=== PATIENT | female | born 1960 | race African-American/Black ===

== ENCOUNTER 2019-05-12 15:44 | Inpatient (IN) | payer OTHER ==
[2019-05-12 19:17] VITALS: BMI 23.8
--- NOTE | 2019-05-12 20:51 | HP ---
CIWA Score - Admission Criteria [facility] Guidelines: Admission for Medically Managed Detox: Requires at least one of the followin. CIWA greater than 12 2. Seizures within the past 24 hours 3. Delirium tremens within the past 24 hours 4. Hallucinations within the past 24 hours 5. Acute intervention needed for co occurring medical disorder 6. Acute intervention needed for co occurring psychiatric disorder 7. Severe withdrawal that cannot be handled at a lower level of care (continued vomiting, continued diarrhea, abnormal vital signs) requiring intravenous medication and/or fluids 8. Admission ROS S - HPI Chief Complaint: seeking inpatient rehab after detox Allergies/Adverse Reactions: Allergies Allergy/AdvReac Type Severity Reaction Status Date / Time Penicillins Allergy Severe Verified 05/12/19 19:03 lactose AdvReac Severe Verified 05/12/19 19:03 History of Present Illness: 58 Y.O FEMALE WITH ALCOHOLISM AND COCAINE DEPENDENCE HERE FOR REHAB. CLIENT IS REFERRED BY [facility] AFTER COMPLETING DETOX. CLIENT WAS ADMITTED ON 05/09/19 AND DC WITH COMPLETION ON 05/12/2019. VERIFIED WITH DC PAPERS. UTOX NEG X2. REPEATED BY LOCAL AREA NETWORK ADMINISTRATOR. THIS IS CLIENT FIRST ADMISSION HERE. REPORTS LONGEST CLEAN TIME 20 MONTHS IN [facility]. RELAPSING 7 MONTHS AGO. DENIES HX/O SEIZURES, DELIRIUM TREMENS. DOMICILED, SSI, DENIES LEGALS. PMHX- OA, HTN, PSYCH- DENIES Exam Limitations: No Limitations - Ebola screening Have you traveled outside of the country in the last 21 days: No Have you had contact with anyone from an Ebola affected area: No Do you have a fever: No - Review of Systems Constitutional: Malaise (R/T OA) EENT: reports: Blurred Vision (LEFT EYE GLUACOMA) Respiratory: reports: No Symptoms reported Cardiac: reports: No Symptoms Reported GI: reports: No Symptoms Reported : reports: No Symptoms Reported Musculoskeletal: reports: Joint Pain (CHRONIC KNEE/ LEFT HIP PAIN R/T OA) Integumentary: reports: No Symptoms Reported Neuro: reports: No Symptoms reported Endocrine: reports: No Symptoms Reported Hematology: reports: No Symptoms Reported Psychiatric: reports: Orientated x3, Anxious, Depressed (2/2 TO RECENT LOSS OF SISTER) Other Systems: Reviewed and Negative Patient History - Patient Medical History Hx Anemia: No Hx Asthma: No Hx Chronic Obstructive Pulmonary Disease (COPD): No Hx Cancer: No Hx Cardiac Disorders: No Hx Congestive Heart Failure: No Hx Hypertension: No Hx Hypercholesterolemia: No Hx Pacemaker: No HX Cerebrovascular Accident: No Hx Seizures: No Hx Dementia: No Hx Diabetes: No Hx Gastrointestinal Disorders: No Hx Liver Disease: No Hx Genitourinary Disorders: No Hx Sexually Transmitted Disorders: No Hx Renal Disease (ESRD): No Hx Thyroid Disease: No Hx Human Immunodeficiency Virus (HIV): No Hx Hepatitis C: No Hx Depression: No Hx Suicide Attempt: No Hx Bipolar Disorder: No Hx Schizophrenia: No Other Medical History: OA - Patient Surgical History Past Surgical History: Yes Hx Neurologic Surgery: No Hx Cataract Extraction: No Hx Cardiac Surgery: No Hx Lung Surgery: No Hx Breast Surgery: No Hx Breast Biopsy: No Hx Abdominal Surgery: No Hx Appendectomy: No Hx Cholecystectomy: No Hx Genitourinary Surgery: No Hx Section: No Hx Orthopedic Surgery: Yes Other Surgical History: LEFT/ RIGHT HIP SX Anesthesia Reaction: No - PPD History Previous Implant?: Yes Documented Results: Negative w/o proof Implanted On Prior R Admission?: No PPD to be Administered?: Yes - Reproductive History LMP comment: MENAPAUSE Patient : No (NEG C) - Smoking Cessation Smoking history: Current every day smoker Have you smoked in the past 12 months: Yes Aproximately how many cigarettes per day: 5 Cigars Per Day: 0 Hx Chewing Tobacco Use: No Initiated information on smoking cessation: Yes 'Breaking Loose' booklet given: 05/12/19 - Substance & Tx. History Hx Alcohol Use: Yes Hx Substance Use: Yes Substance Use Type: Alcohol, Cocaine Hx Substance Use Treatment: Yes ([facility] - Substances abused Alcohol Substance route: Oral Frequency: Daily Amount used: liquor- 1 pint, beer- 1 six pack Age of first use: 27 Date of last use: 05/07/19 Crack Substance route: Smoking Frequency: Daily Amount used: 1 gram Age of first use: 27 Date of last use: 05/07/19 Family Disease History - Family Disease History Family Disease History: CA: Sister (BREAST) Admission Physical Exam [facility] - Vital Signs Vital Signs: Vital Signs - 24 hr 05/12/19 19:10 Temperature 97 F L Pulse Rate 68 Respiratory 16 Rate Blood Pressure 139/89 - Physical General Appearance: Yes: No Apparent Distress, Nourished HEENTM: Yes: EOMI, Normocephalic, Normal Voice, LIZ, Pharynx Normal Respiratory: Yes: Chest Non-Tender, Lungs Clear, Normal Breath Sounds, No Respiratory Distress, No Accessory Muscle Use Neck: Yes: No masses,lesions,Nodules, Supple, Trachea in good position Breast: Yes: Breast Exam Deferred Cardiology: Yes: Regular Rhythm, Regular Rate, S1, S2 Abdominal: Yes: Normal Bowel Sounds, Non Tender, Soft Genitourinary: Yes: Within Normal Limits Back: Yes: Normal Inspection Musculoskeletal: Yes: full range of Motion, Gait Steady Extremities: Yes: Normal Capillary Refill, Normal Range of Motion, Non-Tender Neurological: Yes: Fully Oriented, Alert, Motor Strength 5/5, Normal Mood/Affect Integumentary: Yes: Dry, Warm Lymphatic: Yes: Within Normal Limits - Diagnostic (1) Uncomplicated alcohol dependence Current Visit: Yes Status: Acute (2) Cocaine dependence, uncomplicated Current Visit: Yes Status: Acute (3) Nicotine dependence Current Visit: Yes Status: Chronic Qualifiers: Nicotine product type: cigarettes Substance use status: uncomplicated Qualified Code(s): F17.210 - Nicotine dependence, cigarettes, uncomplicated (4) HTN (hypertension) Current Visit: Yes Status: Chronic Qualifiers: Hypertension type: essential hypertension Qualified Code(s): I10 - Essential (primary) hypertension (5) Osteoarthritis (arthritis due to wear and tear of joints) Current Visit: Yes Status: Chronic (6) Recent bereavement Current Visit: Yes Status: Acute Cleared for Admission [facility] - Detox or Rehab Detox Regimen/Protocol: Not Applicable Claeared for Rehab Admission: Yes Breathalyzer - Breathalyzer Breathalyzer: 0 Urine Drug Screen - Test Device Lot number: [id number] Expiration date: 02/18/21 - Control Is test valid?: Yes - Results Drug screen NEGATIVE: Yes Inpatient Rehab Admission - Rehab Decision to Admit Inpatient rehab admission?: Yes - Initial Determination Are CD services needed?: Yes Free of communicable disease: Yes Not in need of hospitalization: Yes - Rehab Admission Criteria Previous failed treatment: Yes Poor recovery environment: Yes Comorbidities: Yes Lacks judgement: No Patient is meeting Inpatient Rehab admission criteria:: Yes
[2019-05-12] MEDS ORDERED: hydrOXYzine PAMOATE 50 MG CAPSULE (FP) PO PRN (20:59)
[2019-05-12] MEDS ORDERED: ACETAMINOPHEN 325 MG TABLET (FP) PO PRN (20:59)
[2019-05-12] MEDS ORDERED: NICOTINE POLACRILEX 2 MG GUM BC PRN (20:59)
[2019-05-12] MEDS ORDERED: MAG HYDROX/AL HYDROX/SIMETH 30 ML UNIT-DOSE CUP PO PRN (20:59)
[2019-05-12] MEDS ORDERED: MENTHOL/PHENOL 1 EACH UD MM PRN (20:59)
[2019-05-12] MEDS ORDERED: guaiFENesin 200 MG/10 ML 10 ML UNIT-DOSE CUPS PO PRN (20:59)
[2019-05-12] MEDS ORDERED: P-EPHED 60MG/TRIPROLIDI 2.5MG TABLET PO PRN (20:59)
[2019-05-12] MEDS ORDERED: MAGNESIUM CITRATE 300 ML BOTTLE PO PRN (20:59)
[2019-05-12] MEDS ORDERED: MAGNESIUM HYDROX 2400MG/30ML ORAL SUSPENSION 30 ML CUP PO PRN (20:59)
[2019-05-12] MEDS ORDERED: LOPERAMIDE HCL 2 MG CAPSULE PO PRN (20:59)
[2019-05-12] MEDS ORDERED: THIAMINE HCL 100 MG TABLET (FP) PO SCH (22:00)
[2019-05-12] MEDS ORDERED: MELATONIN 5 MG TABLETS PO PRN (22:00)
[2019-05-12] MEDS ORDERED: LATANOPROST 0.005% OPHTH SOLN 2.5ML BOTTLE OS SCH (22:00)
[2019-05-12 22:52] VITALS: BP 140/80; PULSE 65
[2019-05-12] MEDS: PILOCARPINE 1% OPHTHALMIC SOLUTION 15 ML BOTTLE OS SCH (23:14)
[2019-05-12] MEDS: BRIMONIDINE TARTRATE 0.1% OPHTHALMIC 5 ML BOTTLE OS SCH (23:14)
[2019-05-13] MEDS ORDERED: PT OWN MED DRAWER 7, Y5N ONE ×2 (03:36→09:16)
[2019-05-13] MEDS: PILOCARPINE 1% OPHTHALMIC SOLUTION 15 ML BOTTLE OS SCH (07:06)
[2019-05-13] MEDS: BRIMONIDINE TARTRATE 0.1% OPHTHALMIC 5 ML BOTTLE OS SCH (07:06)
[2019-05-13 07:27] VITALS: TEMP 97.8
--- NOTE | 2019-05-13 09:38 | PN ---
[facility] Progress Note (SOAP) Subjective: Patient is leaving today AMA. She is upset because she was unable to keep personal belongs. Hospital course: patient was admitted yesterday evening and is leaving AMA this morning. Objective: - Physical General Appearance: Yes: No Apparent Distress, Nourished HEENTM: Normocephalic, Normal voice LIZ, Respiratory: No Respiratory Distress, No Accessory Muscle Use Neck: Supple, Trachea in good position Cardiology: Regular Rhythm, Abdominal: Non Tender, Soft Back:spine aligned Musculoskeletal: full range of Motion, Gait Steady Extremities: Normal Range of Motion, Non-Tender Neurological: Fully Oriented, Alert Integumentary: Dry, Warm, color consistent throughout trunk and extremities. Vital Signs (72 hours) 05/12/19 05/12/19 05/13/19 19:10 21:50 03:30 Temperature 97 F L 96.8 F L Pulse Rate 68 65 Respiratory 16 18 16 Rate Blood Pressure 139/89 140/80 05/13/19 07:27 Temperature 97.8 F Pulse Rate 65 Respiratory 138 H Rate Blood Pressure 140/80 05/13/19 09:40 Assessment: Medically stable for discharge Discharge Dx: HTN ETOH dependence Cocaine Dependence. Osteoarthritis 05/13/19 09:43 05/13/19 09:43 Plan: Patient will seek aftercare at [facility]. Her PCP is Dr. Yoon at [facility]. Prescriptions transmitted to patient's pharmacy.
[2019-05-13] MEDS ORDERED: amLODIPine BESYLATE 5 MG TABLET (FP) PO SCH (10:00)
[2019-05-13] MEDS ORDERED: PATIENT'S OWN MEDICATION (NON-FORMULARY) (Meloxicam 15 MG) PO SCH (10:00)
[2019-05-13] MEDS ORDERED: NICOTINE 14 MG/24 HOURS TOPICAL PATCH TD SCH (10:00)
[2019-05-13] MEDS ORDERED: PRENATAL VITAMINS W/ FOLIC ACID TABLET (FP) PO SCH (10:00)
--- NOTE | 2019-05-13 13:43 | EKG ---
Test Reason : Blood Pressure : / mmHG Vent. Rate : 061 BPM Atrial Rate : 061 BPM P-R Int : 176 ms QRS Dur : 084 ms QT Int : 448 ms P-R-T Axes : 070 036 046 degrees QTc Int : 450 ms NORMAL SINUS RHYTHM MINIMAL VOLTAGE CRITERIA FOR LVH, MAY BE NORMAL VARIANT BORDERLINE ECG NO PREVIOUS ECGS AVAILABLE Confirmed by Dayne Mosquera MD ([id number]) on 05/13/2019 1:42:35 PM Referred By: Confirmed By:Dayne Mosquera MD
== END 2019-05-13 09:40 | disposition left against medical advice (07) | DRG 770 ==
LOC: YASAS 15:44 → Y3E 19:59
PROVIDERS: ADMIT Neuromusculoskeletal Medicine & OMM; ATTEND Neuromusculoskeletal Medicine & OMM
PROC: HZ42ZZZ Group Counseling for Substance Abuse Treatment, Cognitive-Behavioral (ICD-10-PCS; principal; 2019-05-12)
DX: F10.20 Alcohol dependence, uncomplicated (principal); F14.20 Cocaine dependence, uncomplicated; F17.210 Nicotine dependence, cigarettes, uncomplicated; I10 Essential (primary) hypertension; M19.90 Unspecified osteoarthritis, unspecified site; Z63.4 Disappearance and death of family member; Z88.0 Allergy status to penicillin
CPT/HCPCS: 81025; 93005; 93010